=== PATIENT | female | born 1950 | race Caucasian/White ===

== ENCOUNTER 2018-08-22 12:22 | Outpatient (CLI) | payer MEDICARE ==
--- NOTE | 2018-08-22 14:10 | ULT ---
VENOUS DUPLEX SONOGRAM BILATERAL LOWER EXTREMITIES: HISTORY: Bilateral leg pain and edema. FINDINGS: Each common femoral vein and greater saphenous junction are evaluated along with each femoral, deep f emoral, popliteal, and posterior tibial vein. There is good color and spectral Doppler flow, timothy zoraida, and augmentation. IMPRESSION: No sonographic evidence of deep vein thrombosis within either lower extremity. POS: SAMANTHA
== END 2018-08-22 12:23 | disposition home or self-care (01) ==
LOC: BICULT 12:22
PROVIDERS: ATTEND Internal Medicine
DX: M79.604 Pain in right leg (principal); M79.605 Pain in left leg
CPT/HCPCS: 93970

== ENCOUNTER 2019-03-20 11:43 | Outpatient (CLI) | payer MEDICARE ==
[~2019-03-20 11:43] MED LIST: Iopamidol 370 76% 100 ML VIAL ONE
--- NOTE | 2019-03-20 13:11 | CT ---
CT ABDOMEN AND PELVIS WITH ORAL AND IV CONTRAST: HISTORY: Left upper quadrant pain COMPARISON: None FINDINGS: The lung bases are clear. The patient is post cholecystectomy. The spleen, pancreas, adrenal glands a nd kidneys appear normal. No free air, free fluid or lymphadenopathy seen in the abdomen or pelvis. There is a 7 mm low-density lesion in the posterior segment of the right lobe of the liver, too small to characterize. A small hiatal hernia is present. No free air, free fluid or lymphadenopathy seen in the abdomen or pelvis. The small bowel loops are n ot abnormally dilated. The appendix is normal. There is colonic diverticulosis without evidence of diverticulitis. No evidence of aneurysmal dilatation of the abdominal aorta is seen. There are degene rative changes in the spine. IMPRESSION: 1. Small hiatal hernia. 2. Indeterminate 7 mm liver lesion. 3. Colonic diverticulosis without diverticulitis.
== END 2019-03-20 11:44 | disposition home or self-care (01) ==
LOC: CT 11:43
PROVIDERS: ATTEND Internal Medicine Gastroenterology
DX: R10.12 Left upper quadrant pain (principal); K76.9 Liver disease, unspecified; K44.9 Diaphragmatic hernia without obstruction or gangrene; K57.30 Diverticulosis of large intestine without perforation or abscess without bleeding
CPT/HCPCS: 74177; 82565; Q9967

== ENCOUNTER 2019-06-25 08:18 | Outpatient (CLI) | payer MEDICARE ==
--- NOTE | 2019-06-25 11:19 | ULT ---
HEPATIC SONOGRAM WITH DUPLEX EVALUATION: Date: 06/25/19 HISTORY: Liver lesion. Abnormal CT. COMPARISON: CT abdomen dated 03/20/19. FINDINGS: Gallbladder is surgically absent. Common duct is 0.5 cm. Liver has a slightly heterogeneous echotextu re. The small hypodense lesion at the posterior dome of the right liver lobe on prior CT is not visib le on today's sonogram. No solid or cystic masses. No free fluid. Spleen measures up to 10.3 cm, without focal abnormality. Good color and spectral Doppler flow within the hepatic and splenic arteries. Portal venous flow is t owards the liver. Hepatic venous flow is towards the IVC. IMPRESSION: 1. No findings of portal venous hypertension. 2. Status post cholecystectomy. 3. Small lesion within the posterior dome right liver lobe on recent CT not visualized on today's so nogram. Based on that CT appearance, follow-up may not be necessary. If follow-up is performed, adams e consider CT liver with and without IV contrast employing a hemangioma protocol in 6-9 months to marina montalvo for stability. POS: FABIOLA
== END 2019-06-25 08:19 | disposition home or self-care (01) ==
LOC: BICULT 08:18
PROVIDERS: ATTEND Internal Medicine Gastroenterology
DX: R93.5 Abnormal findings on diagnostic imaging of other abdominal regions, including retroperitoneum (principal); K76.89 Other specified diseases of liver; Z90.49 Acquired absence of other specified parts of digestive tract
CPT/HCPCS: 76705

== ENCOUNTER 2019-11-05 15:21 | Outpatient (CLI) | payer MEDICARE ==
--- NOTE | 2019-11-18 13:51 | MMO ---
Bilateral MAMMO Bilat Screen DDI+BEBO. CLINICAL HISTORY: Patient is 69 years old and is seen for screening. The patient has a history of bilateral mastopexy at age 43. VIEWS: The views performed were: bilateral craniocaudal with tomosynthesis and bilateral mediolateral oblique with tomosynthesis. FILMS COMPARED: The present examination has been compared to a prior imaging study performed at [facility] on 11/13/2016. This study has been interpreted with the assistance of computer-aided detection. MAMMOGRAM FINDINGS: There are scattered fibroglandular densities. There is an asymmetry seen in the CC view only seen in the anterior central region of the left breast. In the right breast, there are no suspicious masses, calcifications or areas of architectural distortion. IMPRESSION: ASYMMETRY IN THE LEFT BREAST REQUIRES ADDITIONAL EVALUATION. RECOMMEND DIAGNOSTIC MAMMOGRAM. ULTRASOUND MAY ALSO PROVE USEFUL AT RECALL. THE RESULTS OF THIS EXAM WERE SENT TO THE PATIENT. ACR BI-RADS Category 0 - Incomplete: Need additional imaging evaluation. [facility] will notify the patient of the need for additional imaging services. MAMMOGRAPHY NOTE: 1. A negative mammogram report should not delay a biopsy if a dominant of clinically suspicious mass is present. 2. Approximately 10% to 15% of breast cancers are not detected by mammography. 3. Adenosis and dense breasts may obscure an underlying neoplasm. Reported by: HE DEMPSEY MD Electonically Signed: [id number]
== END 2019-11-05 15:22 | disposition home or self-care (01) ==
LOC: BICMAMMO 15:21
PROVIDERS: ATTEND Internal Medicine
DX: Z12.31 Encounter for screening mammogram for malignant neoplasm of breast (principal); N64.89 Other specified disorders of breast
CPT/HCPCS: 77063; 77067

== ENCOUNTER 2019-11-25 09:14 | Outpatient (CLI) | payer MEDICARE ==
--- NOTE | 2019-11-25 09:55 | MMO ---
Left Breast MAMMO Unilat Diag DDI LT+BEBO. CLINICAL HISTORY: Patient is 69 years old and is seen for additional evaluation requested at current screening. The patient has no family history of breast cancer. The patient has no personal history of cancer. The patient has a history of bilateral mastopexy at age 43. VIEWS: The views performed were: left craniocaudal spot compression with tomosynthesis; left mediolateral with tomosynthesis; and left mediolateral spot compression with tomosynthesis. FILMS COMPARED: The present examination has been compared to prior imaging studies performed at [facility] on 11/05/2019, and at [facility] on 11/13/2016. This study has been interpreted with the assistance of computer-aided detection. MAMMOGRAM FINDINGS: There are scattered fibroglandular densities. There is a stable round mass measuring 5 millimeters with circumscribed margins seen in the anterior region of the left breast at 12 o'clock. There are no suspicious masses, suspicious calcifications, or new areas of architectural distortion. IMPRESSION: THERE IS NO MAMMOGRAPHIC EVIDENCE OF MALIGNANCY. A ROUTINE FOLLOW-UP MAMMOGRAM IN 1 YEAR IS RECOMMENDED. THE RESULTS OF THIS EXAM WERE SENT TO THE PATIENT. ACR BI-RADS Category 2 - Benign finding MAMMOGRAPHY NOTE: 1. A negative mammogram report should not delay a biopsy if a dominant of clinically suspicious mass is present. 2. Approximately 10% to 15% of breast cancers are not detected by mammography. 3. Adenosis and dense breasts may obscure an underlying neoplasm. Reported by: UMA JOSEPH MD Electonically Signed: [id number]
== END 2019-11-25 09:15 | disposition home or self-care (01) ==
LOC: BICMAMMO 09:14
PROVIDERS: ATTEND Internal Medicine
DX: R92.8 Other abnormal and inconclusive findings on diagnostic imaging of breast (principal)
CPT/HCPCS: 77065; G0279

== ENCOUNTER 2019-12-24 12:23 | Inpatient (IN) | payer MEDICARE ==
[2019-12-24 13:18] LABS: #Basophils 0.1 thou/uL (0.0-0.2); #Eosinphils 0.1 thou/uL (0.0-0.7); #Lymphocytes 2.4 thou/uL (1.20-3.40); #Monocytes 0.5 thou/uL (0.11-0.59); #Neutrophils 3.4 thou/uL (1.40-6.50); %Basophils 0.8 % (0.0-1.0); %Eosinophils 2.3 % (0.0-10.0); %Lymphocytes 37.1 % (21.0-51.0); %Monocytes 7.5 % (0.0-10.0); %Neutrophils 52.3 % (42.0-75.0); Hemoglobin 13.9 g/dL (12.0-16.0); Mean Corpuscular HGB CONC 33.6 g/dL (32.0-36.0); Mean Corpuscular Hemoglobin 29.1 pg (27.0-31.0); Mean Corpuscular Volume 86.5 fL (78.0-98.0); Mean Platelet Volume 7.3 fL (7.4-10.4); Platelet Count 287 thou/uL (130-400); RBC Distribution Width 14.1 % (11.5-14.5); Red Blood Cell (RBC) Count 4.79 mill/uL (4.20-5.40); White Blood Cell (WBC) Count 6.4 thou/uL (4.8-10.8)
[2019-12-24] MEDS ORDERED: Nitroglycerin 2% Ointment 1 INCH/1 GM Packet ONE (13:26)
[2019-12-24 13:44] LABS: ALT (SGPT) 12 U/L (8-55); AST (SGOT) 14 U/L (5-34); Albumin 4.3 g/dL (3.4-4.8); Alkaline Phosphatase 124 U/L (40-110); Anion Gap 11 mmol/L (10-20); BUN (Urea Nitrogen) 11 mg/dL (9.8-20.1); Bilirubin, Total 0.6 mg/dL (0.2-1.2); Calc. Creatinine Clearance 0 mL/min (70-130); Calcium 9.3 mg/dL (7.8-10.44); Carbon Dioxide 27 mmol/L (23-31); Chloride 107 mmol/L (98-107); Estimated GFR-MDRD 71; Globulin 2.6 g/dL (2.4-3.5); Glucose 94 mg/dL (80-115); Lipase 14 U/L (8-78); Potassium 4.1 mmol/L (3.5-5.1); Protein, Total 6.9 g/dL (6.0-8.3); Sodium 141 mmol/L (136-145)
--- NOTE | 2019-12-24 14:01 | RAD ---
PORTABLE CHEST: Date: 12/24/2019 PROVIDED CLINICAL HISTORY: Chest pain. FINDINGS: No comparisons. Cardiac and mediastinal silhouette is within normal limits. No focal consolidation, pleural fluid, or pneumothorax apparent. IMPRESSION: No evidence for an acute cardiopulmonary process. POS: OFF
[2019-12-24 14:09] LABS: CKMB 1.7 ng/mL (0-6.6)
[2019-12-24] MEDS ORDERED: Bacitracin 1 PK ONE (15:45)
[2019-12-24] MEDS ORDERED: Nitroglycerin 0.4 MG TAB (25 Tab Bottle) SL PRN (18:09)
[2019-12-24] MEDS ORDERED: Enoxaparin Sodium 80 MG/0.8 ML SYRINGE SC SCH (18:15)
[2019-12-24] MEDS ORDERED: Enoxaparin Sodium 30 MG/0.3 ML SYRINGE ONE (18:40)
[2019-12-24] MEDS ORDERED: Enoxaparin Sodium 80 MG/0.8 ML SYRINGE ONE (18:40)
[2019-12-24] MEDS ORDERED: Aspirin Chewable 81 MG TAB PO SCH (20:45)
[2019-12-24] MEDS ORDERED: Atorvastatin Calcium 20 MG TAB PO SCH (21:00)
[2019-12-24] MEDS ORDERED: Acetaminophen 325 MG TAB PO PRN (21:13)
[2019-12-24] MEDS ORDERED: Ondansetron ODT 4 MG TAB SL PRN (21:13)
[2019-12-24] MEDS ORDERED: Ondansetron PF 4 MG/2 ML Vial IVP PRN (21:13)
[2019-12-24 22:03] LABS: Troponin I 8.384 ng/mL (< 0.028)
--- NOTE | 2019-12-24 22:29 | ULT ---
EXAM: Left lower extremity venous Doppler US HISTORY: left lower extremity edema and pain FINDINGS: Grayscale, color-flow, Doppler evaluation, spectral analysis of the left lower extremity venous struc tures is performed with 2-D imaging. The left common femoral, superficial femoral, popliteal, posterior tibial, proximal profunda femoral veins are imaged. The greater saphenous vein has been str ipped from the left groin to the ankle several years ago per history. There is normal luminal compressibility, flow, and augmentation the visualized deep venous structures of the left lower extremity. IMPRESSION: No evidence of a deep vein thrombosis in the left lower extremity.
[2019-12-24 23:41] LABS: Lactic Acid 0.6 mmol/L (0.5-2.2)
[2019-12-24 23:45] VITALS: BMI 35.9
[2019-12-25 05:01] LABS: Cardiac Risk 3.9 (Less than 4.5)
--- NOTE | 2019-12-25 06:19 | HP ---
This is DIONNA Verde dictating a report for Radha Jon MD. TIME OF ASSESSMENT: 1700. CHIEF COMPLAINT: Chest pain. HISTORY OF PRESENT ILLNESS: Ms. Flor Stearns is a 69-year-old woman, who presents with complaints of chest pain that she states started yesterday evening. The patient does not recall what time, but states it was at rest and she thought it was due to stress, which she experiences every so often. This morning, however, after walking her dog the patient reports having some severe chest pain rating it 8/10 in severity on the left side of her chest radiating to her left arm and to her neck as well as through to her back. The patient reports the pain remained constant until she arrived to the emergency department and was given Nitro-Bid. She had an EKG done that showed a normal sinus rhythm with no ST changes or T-wave abnormalities. LABORATORY DATA: She had laboratory studies done showing troponin of 0.043, CK-MB 1.7. Full blood count was normal. Sodium 141, potassium 4.1, BUN 11, creatinine 0.80, GFR 71. LFTs unremarkable. Alkaline phosphatase was 124. Chest x-ray showed no evidence for acute cardiopulmonary process. PAST MEDICAL HISTORY: Depression. PAST SURGICAL HISTORY: 1. Bilateral knee replacement. 2. Cholecystectomy. 3. Breast augmentation. SOCIAL HISTORY: The patient denies any tobacco use, alcohol consumption, or illicit drug use. She is fully independent at baseline. PHYSICAL EXAMINATION: GENERAL: The patient appears well developed, well nourished, is in no acute distress. VITAL SIGNS: Temperature 98, pulse 65, blood pressure 141/84, respirations 18, O2 saturation 99% on room air. HEENT: Normocephalic and atraumatic. Pupils are equal, round, reactive to light. No scleral icterus. Oropharynx is clear. NECK: Supple. No lymphadenopathy. LUNGS: Clear to auscultation bilaterally without wheezes, rales, or rhonchi. CARDIAC: Regular rate and rhythm. No chest wall tenderness on palpation. ABDOMEN: Soft, nontender, nondistended. Normoactive bowel sounds present. No guarding or rigidity. No renal angle tenderness. EXTREMITIES: Notable for slight erythema and warmth to the left lower leg from the mid bryant down to above her ankle with trace edema. The patient states it feels tight. Peripheral pulses equal and strong bilaterally. NEUROLOGIC: Alert and oriented x3. No neuro deficits on exam. SKIN: Warm and dry. INVESTIGATIONS: As mentioned above in HPI. IMPRESSION AND PLAN: Ms. Stearns is a 69-year-old woman, presenting with left-sided chest pain radiating to the back, neck and left shoulder, who is being admitted for the following. 1. Acute coronary syndrome rule out. We will continue to trend troponins. The patient is pain-free at present. We will obtain lipid panel with morning labs. We will check TSH. We will continue daily aspirin. The patient was given 324 mg of aspirin by EMS en route to the hospital. The patient will be made n.p.o. after midnight. If troponins remain indeterminate/negative, we will plan for stress test in the morning as well as echo. 2. Left lower extremity erythema. Concern for possible early cellulitis, but no wound evident. We will obtain a venous Doppler to rule out deep venous thrombosis. We will obtain a D-dimer. If positive we will proceed with a CT angiogram of her chest. To assess for possible infection we will add on a procalcitonin and lactic acid. 3. Gastrointestinal prophylaxis with famotidine. 4. Deep venous thrombosis prophylaxis. Investigations as above. 5. Code status full. Surrogate decision maker is her son, Ryan Stearns. PRIMARY CARE PHYSICIAN: Dr. Yamel Javier. Case discussed with Dr. Jon who agrees with plan of care as described above. ADDENDUM: Second troponin has come back elevated at 3.960. EKG repeated with no dynamic changes as per ED physician. We will start Lovenox 1 mg/kg b.i.d. and Cardiology has been consulted. The patient remains pain free. Job ID: [id number]
[2019-12-25] MEDS ORDERED: Sodium Chloride 0.9% 1,000 ML IV SCH (08:45)
[2019-12-25] MEDS ORDERED: Communication Order-Pharmacy FS SCH (08:45)
[2019-12-25] MEDS ORDERED: Enoxaparin Sodium 120 MG/0.8 ML SYRINGE SC SCH (09:00)
--- NOTE | 2019-12-25 09:06 | CON ---
DATE OF CONSULTATION: 12/25/2019 REASON FOR CONSULTATION: Non-ST elevation myocardial infarction. HISTORY OF PRESENT ILLNESS: Ms. Stearns is a delightful 69-year-old woman. The patient presented to the hospital yesterday with chest pain radiating to her neck and upper back. It was intense. She thought she may be having a heart attack or she is also concerned that she could be having a stroke. Ultimately, she came here for evaluation. Her pain was relieved here. She did have positive cardiac enzymes. FAMILY HISTORY: Both parents had coronary artery disease. Her mother had a stent. Father had of a large myocardial infarction. SOCIAL HISTORY: She is a nonsmoker. No alcohol abuse. No drug abuse. PAST MEDICAL HISTORY: She has hypothyroidism on supplementation. REVIEW OF SYSTEMS: CONSTITUTIONAL: No significant weight gain or loss. VISION: No changes. HEARING: No changes. PULMONARY: No cough or wheezing. GASTROINTESTINAL: No nausea, vomiting, or diarrhea. SKIN: No rashes. NEUROLOGIC: No unilateral weakness or numbness. PSYCHIATRIC: No unusual depression or anxiety. PHYSICAL EXAMINATION: GENERAL: This is a pleasant 69-year-old woman, in no distress. VITAL SIGNS: Blood pressure 129/67 and pulse 68 and regular. HEENT: Eyes, sclerae nonicteric. Mouth, mucous membranes moist. NECK: Supple. No lymphadenopathy. LUNGS: Clear. CARDIAC: Normal S1 and normal S2. There is no murmur, rub, or gallop. ABDOMEN: Obese and nontender. No hepatosplenomegaly. EXTREMITIES: Warm and dry. No clubbing or cyanosis or edema. Good peripheral pulses. LABORATORY DATA: EKG is normal. Peak troponin 8.384. The patient's cholesterol LDL 126 and triglyceride 162. ASSESSMENT: 1. Status post non-ST elevation infarction. 2. Family history of coronary artery disease. 3. Mixed hyperlipidemia. 4. Obesity, BMI 35.9. PLAN: Plan is to proceed to cardiac catheterization. Discussed risk of stroke, heart attack, iodine allergy, loss of blood supply to leg or kidney, stent thrombosis, and stent restenosis. The patient understands and wished to proceed. Job ID: [id number]
[2019-12-25] MEDS ORDERED: Midazolam HCl 2 mg/2 ml Vial ONE (09:46)
[2019-12-25] MEDS ORDERED: Lidocaine 1% (PF) 30 ML VIAL ONE (09:46)
[2019-12-25] MEDS ORDERED: Heparin (Artline) 1,000 ML ONE (09:46)
[2019-12-25] MEDS ORDERED: Fentanyl 100 MCG/2 ML VIAL ONE (09:47)
[2019-12-25] MEDS ORDERED: Nitroglycerin 100MG/250ML BOT 0 ML ONE (09:56)
[2019-12-25] MEDS ORDERED: Sodium Chloride 0.9% 200 ML IV PRN (10:35)
[2019-12-25] MEDS ORDERED: Nitroglycerin 0.4 MG TAB (25 Tab Bottle) SL PRN (10:35)
[2019-12-25] MEDS ORDERED: Acetaminophen/Codeine 30-300mg Tablet PO PRN ×2 (10:35)
[2019-12-25] MEDS ORDERED: Iopamidol 370 76% 100 ML VIAL ONE (10:51)
[2019-12-25] MEDS ORDERED: Clopidogrel Bisulfate 300 MG TAB PO SCH (14:00)
[2019-12-25] MEDS: Acetaminophen 325 MG TAB PO PRN (14:20)
[2019-12-25] MEDS ORDERED: Atorvastatin Calcium 40 MG TAB PO SCH (21:00)
[2019-12-26] MEDS: Acetaminophen 325 MG TAB PO PRN (01:17)
[2019-12-26] MEDS ORDERED: Clopidogrel Bisulfate 75 MG TAB PO SCH (09:00)
--- NOTE | 2019-12-26 09:39 | PDOC.CPN ---
- Subjective Date: 12/26/19 Time: 09:00 Interval history: Ms. Stearns is awake, eating breakfast, very anxious to go home. Denies any angina or shortness of breath. Ambulating to bathroom without difficult. Denies pain, bleeding to right groin site, feels "tender". No overnight events on telemetry. - Review of Systems General: denies: fever/chills, weight/appetite/sleep changes, night sweats, fatigue Respiratory: denies: cough, congestion, shortness of breath, exercise intolerance Cardiovascular: denies: chest pain, palpitation, edema, paroxysmal nocturnal dyspnea, orthopnea Gastrointestinal: denies: nausea, vomiting, diarrhea, constipation, abd pain, GI bleeding Musculoskeletal: denies: pain, tenderness, stiffness, swelling, arthritis/ arthralgias - Objective Allergies/Adverse Reactions: Allergies Allergy/AdvReac Type Severity Reaction Status Date / Time No Known Drug Allergies Allergy Verified 12/24/19 22:14 Visit Medications: Current Medications Acetaminophen (Tylenol) 650 mg PO Q6H PRN PRN Reason: Headache/Fever or Pain Last Admin: 12/26/19 01:17 Dose: 650 mg Acetaminophen/Codeine Phosphate (Tylenol #3) 1 tab PO Q4H PRN PRN Reason: Mild Pain (1-3) Acetaminophen/Codeine Phosphate (Tylenol #3) 2 tab PO Q4H PRN PRN Reason: Moderate Pain (4-6) Atorvastatin Calcium (Lipitor) 40 mg PO HS [facility] Last Admin: 12/25/19 21:03 Dose: 40 mg Clopidogrel Bisulfate (Plavix) 75 mg PO DAILY [facility] Fluoxetine HCl (Prozac) 10 mg PO DAILY [facility] Nitroglycerin (Nitrostat) 0.4 mg SL Q5MIN PRN PRN Reason: Chest Pain Nitroglycerin (Nitrostat) 0.4 mg SL Q5MIN PRN PRN Reason: Chest Pain Sodium Chloride (Flush - Normal Saline) 10 ml IVF Q12HR [facility] Last Admin: 12/25/19 21:03 Dose: 10 ml Sodium Chloride (Flush - Normal Saline) 10 ml IVF PRN PRN PRN Reason: Saline Flush Thyroid ([place] Thyroid) 60 mg PO DAILY [facility] Vital Signs & Weight: Vital Signs Temp Pulse Resp BP Pulse Ox 12/26/19 04:00 98.2 F 76 18 132/64 95 Weight 236 lb 6.4 oz - Quality Measures Condition: Coronary Artery Disease CV meds: Beta Minoo: No, AIDAN/ARB: No, Statin: Yes, Plavix/Effient/Brilinta: Yes - Physical Exam General: alert & oriented x3, appears well, no apparent distress HEENT: mucus membranes moist Neck: supple neck, no JVD/HJR, no bruit Cardiac: regular rate and rhythm, no murmur, S1/S2 Lungs: clear to auscultation, normal breath sounds, no wheeze, rales, rhonchi Neuro: grossly intact Abdomen: unremarkable Extremities: no edema Skin: clear (Right groin site s/ hematoma, oozing. Scant ecchymosis.) - Labs Result Diagrams: 12/24/19 13:10 12/24/19 13:10 Troponin/CKMB CK-MB (CK-2) 28.0 ng/mL (0-6.6) H* 12/24/19 19:45 Troponin I 8.384 ng/mL (< 0.028) H* 12/24/19 21:27 - Telemetry Sinus rhythms and dysrhythmias: sinus rhythm - Assessment/Plan Assessment/Plan: 1. CAD-s/p NSTEMI, LHC 12/25 showed left main, LAD, Cx all normal. RCA normal, small distal branch off RCA 100% occluded (recent occlusion). Trop max 8.384. Recommend medical therapy. No recurrent angina. 2. Mixed Hyperlipidemia-TGS 162, LDL 127, target LDL <70. She is very hesitant to start statins, concerned re: SE. Discussed target LDL control, dietary modification for elevated TGS 3. Hypothyroidism 4. Strong family history of CAD. 5. Obesity BP above target, recommend low-dose lisinopril, low-dose metoprolol. Continue statin, DAPT. Okay to discharge home, f/u 4 weeks.
[2019-12-26] MEDS ORDERED: FLUoxetine HCl 10 MG CAP PO SCH (10:15)
[2019-12-26] MEDS ORDERED: Thyroid 60 MG TAB PO SCH (10:15)
[2019-12-26] MEDS ORDERED: Aspirin 81 mg Enteric Coated Tablet PO SCH (10:45)
[2019-12-26 12:05] VITALS: BP 139/81; TEMP 98.7
--- NOTE | 2019-12-26 18:46 | DIS ---
DATE OF ADMISSION: 12/24/2019 DATE OF DISCHARGE: 12/26/2019 DISCHARGE DIAGNOSES: 1. Chest pain, [id number] myocardial infarction. 2. Mixed hyperlipidemia. 3. Hypothyroidism. 4. Obesity. HOSPITAL COURSE: The patient is a very pleasant 69-year-old female who initially presented to the hospital with chest pain, was found to have elevated troponins. She had a cardiac cath on 12/25, that indicated normal left main LAD and circumflex and RCA. However, a small distant branch of RCA was 100% occluded. No intervention was done. The patient was put on medical therapy. The patient had no angina overnight and at this time, she will be discharged home. She did have triglycerides at 162, LDL of 127. We did discuss with her about diet, exercise, and she understands. We will start her on statin and also put her on aspirin and Plavix. The patient had concerns about her Eolia which she takes for hypothyroidism. I recommended to follow up with her primary care doctor and also recommended an coal cutter if needed. Her TSH on discharge was 7.4, and I do not have a prior one for comparison. PHYSICAL EXAMINATION: VITAL SIGNS: Temperature 98.7, pulse 82, respirations 15, 92% on room air, blood pressure 139/81. GENERAL: She is awake, alert, and oriented x3. Does not appear in distress. CV: S1 and S2 present. No murmurs, rubs, or gallops. EXTREMITIES: Her right groin site appears intact. MEDICATIONS: She is going to be on: 1. [place] Thyroid 60 mg daily. 2. Prozac 10 mg daily. 3. Toprol-XL 12.5 daily. 4. Lisinopril 2.5 daily. 5. Clopidogrel 75 daily. 6. Atorvastatin 40 mg daily. 7. Aspirin 81 mg daily. Job ID: [id number]
[2019-12-27] MEDS ORDERED: Lisinopril 2.5 MG TAB PO SCH (09:00)
[2019-12-27] MEDS ORDERED: Thyroid 60 MG TAB PO SCH (09:00)
[2019-12-27] MEDS ORDERED: Aspirin 81 mg Enteric Coated Tablet PO SCH (09:00)
[2019-12-27] MEDS ORDERED: FLUoxetine HCl 10 MG CAP PO SCH (09:00)
== END 2019-12-26 15:27 | disposition home or self-care (01) | DRG 282 ==
LOC: ERS 12:23 → ERHOLD 16:25 → 2NO 20:49
PROVIDERS: ADMIT Internal Medicine; ATTEND Internal Medicine
PROC: 4A023N7 Measurement of Cardiac Sampling and Pressure, Left Heart, Percutaneous Approach (ICD-10-PCS; principal; 2019-12-25)
PROC: B2111ZZ Fluoroscopy of Multiple Coronary Arteries using Low Osmolar Contrast (ICD-10-PCS; 2019-12-25)
PROC: B2141ZZ Fluoroscopy of Right Heart using Low Osmolar Contrast (ICD-10-PCS; 2019-12-25)
DX: I21.4 Non-ST elevation (NSTEMI) myocardial infarction (principal); E78.2 Mixed hyperlipidemia; E03.9 Hypothyroidism, unspecified; E66.9 Obesity, unspecified; Z96.653 Presence of artificial knee joint, bilateral; F32.9 Major depressive disorder, single episode, unspecified; L53.8 Other specified erythematous conditions; I25.10 Atherosclerotic heart disease of native coronary artery without angina pectoris; Z68.35 Body mass index [BMI] 35.0-35.9, adult; Z90.49 Acquired absence of other specified parts of digestive tract; Z79.899 Other long term (current) drug therapy; Z79.890 Hormone replacement therapy
CPT/HCPCS: 36415; 71045; 76942; 80053; 80061; 82553; 83605; 83690; 83880; 84145; 84439; 84443; 84484; 85025; 85379; 93005; 93458; 93798; 94760; 96372; 99152; C1769; J1644; J1650; J2001; J2250; J3010; Q9967

== ENCOUNTER 2020-01-01 09:08 | Outpatient (CLI) | payer MEDICARE ==
--- NOTE | 2020-01-01 09:34 | RAD ---
3 views paranasal sinuses: 01/01/2020 COMPARISON: None HISTORY: Sinusitis, pressure and pain behind the right eye FINDINGS: The frontal sinuses, maxillary sinuses, ethmoid air cells, sphenoid sinuses, and mastoid ai r cells appear grossly unremarkable. IMPRESSION: Unremarkable 3 view examination of the paranasal sinuses.
== END 2020-01-01 09:09 | disposition home or self-care (01) ==
LOC: BICRAD 09:08
PROVIDERS: ATTEND Internal Medicine
DX: J40 Bronchitis, not specified as acute or chronic (principal); J32.9 Chronic sinusitis, unspecified
CPT/HCPCS: 36415; 70220; 80053; 85025

== ENCOUNTER 2020-02-09 19:34 | Emergency (ER) | payer MEDICARE, OTHER ==
[2020-02-09] MEDS ORDERED: Aspirin 325 MG TAB ONE (20:06)
[2020-02-09 20:16] LABS: #Basophils 0.1 thou/uL (0.0-0.2); #Eosinphils 0.2 thou/uL (0.0-0.7); #Monocytes 0.5 thou/uL (0.11-0.59); #Neutrophils 4.2 thou/uL (1.40-6.50); %Basophils 0.8 % (0.0-1.0); %Lymphocytes 37.7 % (21.0-51.0); %Monocytes 6.6 % (0.0-10.0); %Neutrophils 52.8 % (42.0-75.0); Hemoglobin 13.3 g/dL (12.0-16.0); Mean Corpuscular HGB CONC 34.5 g/dL (32.0-36.0); Mean Corpuscular Hemoglobin 29.7 pg (27.0-31.0); Mean Corpuscular Volume 86.2 fL (78.0-98.0); Mean Platelet Volume 7.4 fL (7.4-10.4); Platelet Count 269 thou/uL (130-400); RBC Distribution Width 14.1 % (11.5-14.5); Red Blood Cell (RBC) Count 4.47 mill/uL (4.20-5.40); White Blood Cell (WBC) Count 7.9 thou/uL (4.8-10.8)
--- NOTE | 2020-02-09 20:31 | RAD ---
PORTABLE CHEST: 02/09/20 PROVIDED CLINICAL HISTORY: Chest pain. FINDINGS: Comparison 12/24/19. Cardiac and mediastinal silhouette is within normal limits. The lungs appear clear. No pleural fluid or pneumothorax apparent. IMPRESSION: No evidence for an acute cardiopulmonary process. POS: SIERRA
[2020-02-09 20:40] LABS: ALT (SGPT) 11 U/L (8-55); AST (SGOT) 14 U/L (5-34); Albumin 4.2 g/dL (3.4-4.8); Alkaline Phosphatase 115 U/L (40-110); Anion Gap 12 mmol/L (10-20); BUN (Urea Nitrogen) 19 mg/dL (9.8-20.1); Bilirubin, Total 0.5 mg/dL (0.2-1.2); Calc. Creatinine Clearance 0 mL/min (70-130); Calcium 9.2 mg/dL (7.8-10.44); Carbon Dioxide 24 mmol/L (23-31); Chloride 107 mmol/L (98-107); Estimated GFR-MDRD 61; Glucose 87 mg/dL (80-115); Potassium 3.9 mmol/L (3.5-5.1); Protein, Total 7.2 g/dL (6.0-8.3); Sodium 139 mmol/L (136-145)
--- NOTE | 2020-02-10 13:27 | EKG ---
Test Reason : Blood Pressure : / mmHG Vent. Rate : 066 BPM Atrial Rate : 066 BPM P-R Int : 198 ms QRS Dur : 084 ms QT Int : 412 ms P-R-T Axes : 024 -05 009 degrees QTc Int : 431 ms Normal sinus rhythm Q waves III Abnormal ECG Confirmed by DESTINEY TIDWELL, ISA Ham ([id number]), order editor JOCELYN PATEL ([id number]) on 02/10/2020 1:26:51 PM Referred By: Confirmed By:ISA CABELLO MD
== END 2020-02-09 20:58 | disposition home or self-care (01) ==
LOC: ERS 19:34
DX: R07.9 Chest pain, unspecified (principal); I25.2 Old myocardial infarction; F32.9 Major depressive disorder, single episode, unspecified; Z79.899 Other long term (current) drug therapy
CPT/HCPCS: 36415; 71045; 80053; 83880; 84484; 85025; 93005

== ENCOUNTER 2020-08-16 21:55 | Emergency (ER) | payer MEDICARE ==
[2020-08-16] MEDS ORDERED: Ketamine 50 MG/ML (10ML VIAL) ONE (23:00)
[2020-08-16] MEDS ORDERED: Fentanyl 100 MCG/2 ML VIAL ONE (23:16)
[2020-08-17] MEDS ORDERED: Ondansetron PF 4 MG/2 ML Vial ONE (00:43)
--- NOTE | 2020-08-17 07:05 | RAD ---
LEFT HUMERUS 2 VIEWS: Date: 08/16/2020 HISTORY: Tripped and fell. FINDINGS: There is an anterior shoulder dislocation present. No Hill-Sachs deformity visualized. IMPRESSION: Anterior shoulder dislocation. POS: FABIO
--- NOTE | 2020-08-17 07:09 | RAD ---
LEFT SHOULDER 2 VIEWS: Date: 08/16/2020 HISTORY: Fall with shoulder pain. FINDINGS: There is an anterior shoulder dislocation present. On the more internally rotated view, there appears to be an associated Hill-Sachs deformity to the humeral head. IMPRESSION: Anterior shoulder dislocation. POS: FABIO
--- NOTE | 2020-08-17 07:12 | RAD ---
LEFT SHOULDER 2 VIEW: Date: 08/16/2020 HISTORY: Post reduction. FINDINGS: The anterior shoulder dislocation is still present. IMPRESSION: Persistent anterior shoulder dislocation. POS: FABIO
--- NOTE | 2020-08-17 07:38 | RAD ---
2 views left shoulder: 08/17/2020 COMPARISON: 08/16/2020 HISTORY: Evaluate left shoulder following reduction FINDINGS: The previously noted dislocation of the left glenohumeral joint has been reduced. No wideni ng of the acromioclavicular or coracoclavicular interspace. No displaced fracture. IMPRESSION: Interval reduction of the previously noted left shoulder dislocation.
== END 2020-08-17 01:22 | disposition home or self-care (01) ==
LOC: ERS 21:55
DX: S43.005A Unspecified dislocation of left shoulder joint, initial encounter (principal); I25.2 Old myocardial infarction; F32.9 Major depressive disorder, single episode, unspecified; E66.9 Obesity, unspecified; W01.0XXA Fall on same level from slipping, tripping and stumbling without subsequent striking against object, initial encounter
CPT/HCPCS: 23650; 96374; 96375; 99156; 99157; J2405; J3010

== ENCOUNTER 2020-11-11 12:32 | Outpatient (CLI) | payer MEDICARE ==
--- NOTE | 2020-11-11 14:56 | CT ---
EXAM: CT left shoulder without contrast PROVIDED CLINICAL HISTORY: Preoperative planning COMPARISON: MRI right shoulder 10/05/2020 FINDINGS: Osseous Bankart fracture with displaced osteochondral fragments and glenohumeral joint effusion are r edemonstrated. Hill-Sachs impaction deformity is again seen. There is a healing/healed fracture involving the coracoid process. No additional fracture is evident. No significant acromioclavicular degenerative change. Rotator cuff muscular volume appears preserved. There is no evidence for axillary lymph node enlargement. The visualized left lung field appears clear. IMPRESSION: As above.
== END 2020-11-11 12:33 | disposition home or self-care (01) ==
LOC: BICCT 12:32
PROVIDERS: ATTEND Orthopaedic Surgery
DX: S43.005A Unspecified dislocation of left shoulder joint, initial encounter (principal); M21.822 Other specified acquired deformities of left upper arm

== ENCOUNTER 2021-04-04 17:59 | Outpatient (CLI) | payer MEDICARE ==
[2021-04-04 19:05] LABS: #Eosinphils 0.2 10x3/uL (0.0-0.5); #Monocytes 0.6 10x3/uL (0.0-1.1); #Neutrophils 4.6 10x3/uL (1.5-8.4); %Basophils 0.5 % (0.0-2.0); %Lymphocytes 29.2 % (18.0-47.0); %Monocytes 7.6 % (0.0-10.0); %Neutrophils 60.3 % (40.0-75.0); Hemoglobin 12.7 g/dL (12.0-15.5); Mean Corpuscular HGB CONC 32.3 g/dL (32.0-36.0); Mean Corpuscular Hemoglobin 27.9 pg (27.0-33.0); Mean Corpuscular Volume 86.4 fl (81.6-98.3); Platelet Count 325 10x3/uL (150-450); RBC Distribution Width 15.4 % (11.5-14.5); Red Blood Cell (RBC) Count 4.55 10x6/uL (3.90-5.03); White Blood Cell (WBC) Count 7.7 10x3/uL (3.5-10.5)
[2021-04-04 19:08] LABS: Anion Gap 13 mmol/L (10-20); BUN (Urea Nitrogen) 15 mg/dL (9.8-20.1); Calc. Creatinine Clearance 0 mL/min (70-130); Calcium 9.6 mg/dL (7.8-10.44); Carbon Dioxide 26 mmol/L (23-31); Chloride 104 mmol/L (98-107); Glucose 85 mg/dL (80-115); Potassium 4.1 mmol/L (3.5-5.1); Sodium 139 mmol/L (136-145)
[2021-04-04 19:15] LABS: INR-International Normal Ratio 0.9; PTT 26.3 sec (22.0-33.0); Prothrombin Time 10.5 sec (9.5-12.1)
[2021-04-05 00:07] LABS: SARS-CoV-2 NAA Rapid Test Not Detected (NotDetected)
== END 2021-04-04 18:00 | disposition home or self-care (01) ==
LOC: LABBT 17:59
PROVIDERS: ATTEND Orthopaedic Surgery
DX: Z01.818 Encounter for other preprocedural examination (principal); S42.202A Unspecified fracture of upper end of left humerus, initial encounter for closed fracture; S43.005A Unspecified dislocation of left shoulder joint, initial encounter; S42.142A Displaced fracture of glenoid cavity of scapula, left shoulder, initial encounter for closed fracture; S42.135A Nondisplaced fracture of coracoid process, left shoulder, initial encounter for closed fracture; Z20.822 Contact with and (suspected) exposure to COVID-19
CPT/HCPCS: 80048; 85025; 85610; 85730; U0002; U0005

== ENCOUNTER 2021-04-04 18:00 | Inpatient (IN) | payer MEDICARE ==
[2021-04-05 10:28] VITALS: BMI 34.4
[2021-04-06] MEDS ORDERED: Fentanyl 100 MCG/2 ML VIAL ONE ×2 (06:29→07:27)
[2021-04-06] MEDS ORDERED: Tranexamic Acid 1,000 MG/10 ML VIAL ONE (06:32)
[2021-04-06] MEDS ORDERED: Vancomycin 1.5 GRAM/300 ML BAG 1.5 GM in Premix Bag 1 BAG IVPB SCH ×2 (06:45→18:00)
[2021-04-06] MEDS ORDERED: Midazolam HCl 2 mg/2 ml Vial ONE (07:27)
[2021-04-06] MEDS ORDERED: Fentanyl 100 MCG/2 ML VIAL IV PRN (07:28)
[2021-04-06] MEDS ORDERED: HYDROcodone/Acetaminophen 10/325 mg Tablet PO PRN ×3 (07:30→12:01)
[2021-04-06] MEDS ORDERED: Ondansetron PF 4 MG/2 ML Vial IVP PRN ×2 (07:30→12:01)
[2021-04-06] MEDS ORDERED: Promethazine HCl 25 MG/ML VIAL IM PRN ×2 (07:30→10:14)
[2021-04-06] MEDS ORDERED: traMADol HCl 50 MG TAB PO PRN ×4 (07:30→12:01)
[2021-04-06] MEDS ORDERED: Zolpidem Tartrate 5 MG TAB PO PRN ×2 (07:30→12:01)
[2021-04-06] MEDS ORDERED: Ropivacaine 0.2% 550 ML 550 ML NERVE BLCK SCH (07:30)
[2021-04-06] MEDS ORDERED: ePHEDrine Sulfate 50 MG/10 ML VIAL ONE (07:31)
[2021-04-06] MEDS ORDERED: Ondansetron PF 4 MG/2 ML Vial ONE ×2 (07:31→10:20)
[2021-04-06] MEDS ORDERED: Glycopyrrolate 0.2 MG/ML 5 ML SYRINGE ONE (07:31)
[2021-04-06] MEDS ORDERED: Ropivacaine 0.5% HCl/PF (150 MG/30 ML VIAL) ONE (07:31)
[2021-04-06] MEDS ORDERED: Rocuronium Bromide 10 MG/ML (10ML VIAL) ONE (07:31)
[2021-04-06] MEDS ORDERED: Ropivacaine 2% HCl/PF (20 MG/10 ML VIAL) ONE (07:31)
[2021-04-06] MEDS ORDERED: PHENYLEPHRINE-NS 100 MCG/ML 10 ML SYRINGE ONE (07:31)
[2021-04-06] MEDS ORDERED: Dexamethasone 20 MG/5 ML VIAL ONE (07:31)
[2021-04-06] MEDS ORDERED: PROPOFOL 200 MG/20 ML VIAL ONE (07:31)
[2021-04-06] MEDS ORDERED: Lidocaine 1% PF 5 ML VIAL ONE (07:31)
[2021-04-06] MEDS ORDERED: Phenylephrine 10 MG/ML VIAL ONE (08:22)
[2021-04-06] MEDS ORDERED: Promethazine HCl 25 MG/ML VIAL SLOW IVP PRN (10:14)
[2021-04-06] MEDS ORDERED: Ondansetron HCl/PF 4 MG/2 ML Vial IVP PRN (10:14)
[2021-04-06] MEDS ORDERED: Promethazine HCl 25 MG/ML VIAL ONE (10:20)
[2021-04-06] MEDS ORDERED: Milk Of Magnesia 30 ML UDCUP PO PRN (12:01)
[2021-04-06] MEDS ORDERED: Methocarbamol 1 GM/10 ML VIAL SLOW IVP PRN (12:01)
[2021-04-06] MEDS ORDERED: Acetaminophen 325 MG TAB PO PRN (12:01)
[2021-04-06] MEDS ORDERED: Ondansetron ODT 4 MG TAB PO PRN (12:01)
[2021-04-06] MEDS ORDERED: Bisacodyl 10 MG SUPP PR PRN (12:01)
[2021-04-06] MEDS ORDERED: Ketorolac Tromethamine 30 MG/ML VIAL IVP PRN (12:01)
[2021-04-06] MEDS ORDERED: Methocarbamol 500 MG TAB PO PRN (12:01)
[2021-04-06] MEDS ORDERED: diphenhydrAMINE 50 MG CAP PO PRN (12:01)
[2021-04-06] MEDS ORDERED: Vancomycin HCl 1.5 GM in Sodium Chloride 0.9% 250 ML 300 ML IVPB SCH (12:01)
[2021-04-06] MEDS ORDERED: Nitroglycerin 0.4 MG TAB (25 Tab Bottle) SL PRN (12:40)
[2021-04-06] MEDS: CEFAZOLIN 2 GM in Premix Bag 1 BAG IVPB SCH ×2 (13:15→15:58)
[2021-04-06] MEDS: Ketorolac Tromethamine 30 MG/ML VIAL IVP SCH ×3 (13:25→23:35)
[2021-04-06] MEDS: Sodium Chloride 0.9% 1,000 ML IV SCH (14:43)
[2021-04-06] MEDS: HYDROcodone/Acetaminophen 10/325 mg Tablet PO PRN (16:04)
[2021-04-06] MEDS: Ascorbic Acid 500 mg Chewable Tablet PO SCH (22:45)
[2021-04-06] MEDS: Magnesium Oxide 400 MG TAB PO SCH (22:45)
[2021-04-06] MEDS: Famotidine 20 MG TAB PO SCH (22:45)
[2021-04-07] MEDS: HYDROcodone/Acetaminophen 10/325 mg Tablet PO PRN ×2 (05:07→09:28)
[2021-04-07] MEDS: Ketorolac Tromethamine 30 MG/ML VIAL IVP SCH ×2 (05:47→12:34)
[2021-04-07 05:52] LABS: Hemoglobin 12.3 g/dL (12.0-16.0); Mean Corpuscular HGB CONC 33.5 g/dL (32.0-36.0); Mean Corpuscular Hemoglobin 29.8 pg (27.0-31.0); Mean Corpuscular Volume 89.1 fL (78.0-98.0); Mean Platelet Volume 7.7 fL (7.4-10.4); Platelet Count 290 thou/uL (130-400); RBC Distribution Width 13.5 % (11.5-14.5); Red Blood Cell (RBC) Count 4.11 mill/uL (4.20-5.40); White Blood Cell (WBC) Count 12.4 thou/uL (4.8-10.8)
[2021-04-07] MEDS: Sodium Chloride 0.9% 1,000 ML IV SCH (05:52)
[2021-04-07] MEDS ORDERED: Zinc Sulfate 220 MG CAP PO SCH (09:00)
[2021-04-07] MEDS ORDERED: FLUoxetine HCl 10 MG CAP PO SCH (09:00)
[2021-04-07] MEDS ORDERED: Acetylcysteine 20% 200 MG/ML 30 ML VIAL PO SCH (09:00)
[2021-04-07] MEDS ORDERED: prednisoLONE 1% Ophth Susp 5 ml Bottle EA EYE SCH (09:00)
[2021-04-07] MEDS ORDERED: QUERCETIN 500 MG PO SCH (09:00)
[2021-04-07] MEDS ORDERED: Cholecalciferol 1,000 UNITS (25 MCG) TAB PO SCH (09:00)
[2021-04-07] MEDS ORDERED: Aspirin Chewable 81 MG TAB PO SCH (09:00)
[2021-04-07] MEDS ORDERED: Thyroid 60 MG TAB PO SCH (09:00)
[2021-04-07] MEDS ORDERED: Multivit, Therapeutic 1 TAB PO SCH (09:00)
[2021-04-07] MEDS: Famotidine 20 MG TAB PO SCH (09:27)
[2021-04-07] MEDS: Magnesium Oxide 400 MG TAB PO SCH (09:28)
[2021-04-07] MEDS: Ascorbic Acid 500 mg Chewable Tablet PO SCH (09:28)
[2021-04-07 11:58] VITALS: BP 96/60; TEMP 98.4
== END 2021-04-07 15:16 | disposition home or self-care (01) | DRG 483 ==
LOC: SURG A 04-06 06:11 → SURG B 04-06 12:28
PROVIDERS: ADMIT Orthopaedic Surgery; ATTEND Orthopaedic Surgery
PROC: 0RRK00Z Replacement of Left Shoulder Joint with Reverse Ball and Socket Synthetic Substitute, Open Approach (ICD-10-PCS; principal; 2021-04-06)
PROC: 0LS40ZZ Reposition Left Upper Arm Tendon, Open Approach (ICD-10-PCS; 2021-04-06)
DX: S42.142A Displaced fracture of glenoid cavity of scapula, left shoulder, initial encounter for closed fracture (principal); S42.202A Unspecified fracture of upper end of left humerus, initial encounter for closed fracture; W19.XXXA Unspecified fall, initial encounter; S43.012A Anterior subluxation of left humerus, initial encounter; S46.012A Strain of muscle(s) and tendon(s) of the rotator cuff of left shoulder, initial encounter; I10 Essential (primary) hypertension; R06.9 Unspecified abnormalities of breathing; I25.2 Old myocardial infarction; Z98.890 Other specified postprocedural states; Z91.011 Allergy to milk products; Z79.82 Long term (current) use of aspirin; Z79.899 Other long term (current) drug therapy
CPT/HCPCS: 36415; 80048; 85025; 85027; 85610; 85730; 94640; A4306; C1713; C1776; J0132; J0690; J1100; J1885; J2250; J2370; J2405; J2550; J2704; J2795; J3010; J3370; J7620; U0002; U0005

== ENCOUNTER 2021-12-12 15:14 | Outpatient (CLI) | payer MEDICARE | END 2021-12-12 15:15 | disposition home or self-care (01) | LOC: SCSRAD 15:14 | PROVIDERS: ATTEND Family Medicine | DX: M54.50 Low back pain, unspecified (principal); M54.6 Pain in thoracic spine; M54.2 Cervicalgia; M53.3 Sacrococcygeal disorders, not elsewhere classified; M47.816 Spondylosis without myelopathy or radiculopathy, lumbar region; M47.812 Spondylosis without myelopathy or radiculopathy, cervical region | CPT/HCPCS: 72040; 72072; 72100; 72220 ==

== ENCOUNTER 2022-01-18 13:25 | Outpatient (CLI) | payer MEDICARE | END 2022-01-18 13:26 | disposition home or self-care (01) | LOC: BICMAMMO 13:25 | PROVIDERS: ATTEND Family Medicine | DX: Z12.31 Encounter for screening mammogram for malignant neoplasm of breast (principal); Z98.890 Other specified postprocedural states | CPT/HCPCS: 77063; 77067 ==

== ENCOUNTER 2022-05-14 15:10 | Outpatient (CLI) | payer MEDICARE ==
[2022-05-14 16:10] LABS: #Monocytes 0.4 10x3/uL (0.0-1.1); #Neutrophils 2.3 10x3/uL (1.5-8.4); %Basophils 0.2 % (0.0-2.0); %Eosinophils 0.5 % (0.0-6.0); %Lymphocytes 36.8 % (18.0-47.0); %Monocytes 8.9 % (0.0-10.0); %Neutrophils 53.4 % (40.0-75.0); Hemoglobin 13.2 g/dL (12.0-15.5); Mean Corpuscular HGB CONC 33.1 g/dL (32.0-36.0); Mean Corpuscular Hemoglobin 28.4 pg (27.0-33.0); Mean Corpuscular Volume 85.8 fl (81.6-98.3); Mean Platelet Volume 10.2 fl (7.4-10.4); Platelet Count 212 10x3/uL (150-450); RBC Distribution Width 15.6 % (11.5-14.5); Red Blood Cell (RBC) Count 4.65 10x6/uL (3.90-5.03); White Blood Cell (WBC) Count 4.3 10x3/uL (3.5-10.5)
[2022-05-14 16:38] LABS: Anion Gap 14 mmol/L (10-20); BUN (Urea Nitrogen) 13 mg/dL (9.8-20.1); Calc. Creatinine Clearance 0 mL/min (70-130); Carbon Dioxide 25 mmol/L (23-31); Chloride 107 mmol/L (98-107); Estimated GFR 83; Glucose 107 mg/dL (80-115); Potassium 4.1 mmol/L (3.5-5.1); Sodium 142 mmol/L (136-145)
== END 2022-05-14 15:11 | disposition home or self-care (01) ==
LOC: LABBT 15:10
PROVIDERS: ATTEND Orthopaedic Surgery
DX: U07.1 COVID-19 (principal); Z01.812 Encounter for preprocedural laboratory examination; S46.011A Strain of muscle(s) and tendon(s) of the rotator cuff of right shoulder, initial encounter
CPT/HCPCS: 80048; 85025; 87811

== ENCOUNTER 2022-07-04 05:53 | Inpatient (IN) | payer MEDICARE ==
[2022-07-03 10:22] VITALS: BMI 35.9
[2022-07-04] MEDS ORDERED: Fentanyl 100 MCG/2 ML VIAL ONE ×3 (06:45→09:24)
[2022-07-04] MEDS ORDERED: Midazolam HCl 2 mg/2 ml Vial ONE ×2 (06:45)
[2022-07-04] MEDS ORDERED: Sodium Chloride 0.9% 100 ML ONE (06:48)
[2022-07-04] MEDS ORDERED: CEFAZOLIN 2 GM VIAL ONE (06:48)
[2022-07-04] MEDS ORDERED: fentaNYL Citrate/PF 100 MCG/2 ML SYRINGE ONE (07:02)
[2022-07-04] MEDS ORDERED: Rocuronium Bromide 50 MG/5 ML VIAL ONE (07:02)
[2022-07-04] MEDS ORDERED: PROPOFOL 20 ML ONE (07:02)
[2022-07-04] MEDS ORDERED: Vecuronium 10 MG VIAL ONE (07:10)
[2022-07-04] MEDS ORDERED: Rocuronium Bromide 10 MG/ML (10ML VIAL) ONE (07:10)
[2022-07-04] MEDS ORDERED: Neostigmine Methylsulfate 3 MG/3 ML SYRINGE ONE (07:10)
[2022-07-04] MEDS ORDERED: Dexamethasone 20 MG/5 ML VIAL ONE (07:10)
[2022-07-04] MEDS ORDERED: PROPOFOL 200 MG/20 ML VIAL ONE (07:10)
[2022-07-04] MEDS ORDERED: Lidocaine 1% MPF 2 ML VIAL ONE (07:10)
[2022-07-04] MEDS ORDERED: Glycopyrrolate 0.2 MG/ML 5 ML SYRINGE ONE (07:10)
[2022-07-04] MEDS ORDERED: Ropivacaine 0.5% HCl/PF (150 MG/30 ML VIAL) ONE (07:30)
[2022-07-04] MEDS ORDERED: Vancomycin (BATCH) 1.5 GRAM/300 ML BAG ONE (07:38)
[2022-07-04] MEDS ORDERED: HYDROcodone/Acetaminophen 10/325 mg Tablet PO PRN ×2 (08:00)
[2022-07-04] MEDS ORDERED: Ropivacaine 0.2% 550 ML 550 ML NERVE BLCK SCH (08:00)
[2022-07-04] MEDS ORDERED: Ondansetron PF 4 MG/2 ML Vial IVP PRN (08:00)
[2022-07-04] MEDS ORDERED: traMADol HCl 50 MG TAB PO PRN ×2 (08:00)
[2022-07-04] MEDS ORDERED: Promethazine HCl 25 MG/ML VIAL IM PRN (08:00)
[2022-07-04] MEDS ORDERED: Zolpidem Tartrate 5 MG TAB PO PRN (08:00)
[2022-07-04] MEDS ORDERED: SUGAMMADEX SODIUM 200 MG/2 ML VIAL ONE (08:49)
[2022-07-04] MEDS ORDERED: Tranexamic Acid 1,000 MG/10 ML VIAL ONE (09:24)
[2022-07-04] MEDS ORDERED: Promethazine HCl 25 MG/ML VIAL ONE (10:00)
[2022-07-04] MEDS ORDERED: Promethazine HCl 25 MG/ML VIAL IM/IV PRN (10:15)
[2022-07-04] MEDS ORDERED: Ondansetron HCl/PF 4 MG/2 ML Vial IVP PRN (10:15)
[2022-07-04] MEDS ORDERED: Methocarbamol 500 MG TAB PO PRN (10:46)
[2022-07-04] MEDS ORDERED: Bisacodyl 10 MG SUPP PR PRN (10:46)
[2022-07-04] MEDS ORDERED: diphenhydrAMINE 50 MG CAP PO PRN (10:46)
[2022-07-04] MEDS ORDERED: Milk Of Magnesia 30 ML UDCUP PO PRN (10:46)
[2022-07-04] MEDS ORDERED: Methocarbamol 1 GM/10 ML VIAL SLOW IVP PRN (10:46)
[2022-07-04] MEDS: Ketorolac Tromethamine 30 MG/ML VIAL IVP SCH ×3 (12:02→23:32)
[2022-07-04] MEDS: Sodium Chloride 0.9% 1,000 ML IV SCH (12:03)
[2022-07-04] MEDS: CEFAZOLIN 2 GM in Sodium Chloride 0.9% 100 ML IVPB SCH ×2 (14:53→23:32)
[2022-07-04] MEDS ORDERED: Vancomycin HCl 1.5 GM in Sodium Chloride 0.9% 250 ML 300 ML IVPB SCH (19:00)
[2022-07-04] MEDS: Famotidine 20 MG TAB PO SCH (20:33)
[2022-07-05] MEDS: Sodium Chloride 0.9% 1,000 ML IV SCH ×2 (03:06→18:12)
[2022-07-05 05:57] LABS: #Lymphocytes 1.5 thou/uL (1.20-3.40); #Monocytes 0.9 thou/uL (0.11-0.59); #Neutrophils 9.5 thou/uL (1.40-6.50); %Basophils 0.1 % (0.0-1.0); %Eosinophils 0.1 % (0.0-10.0); %Lymphocytes 12.9 % (21.0-51.0); %Monocytes 7.3 % (0.0-10.0); %Neutrophils 79.5 % (42.0-75.0); Hemoglobin 11.8 g/dL (12.0-16.0); Mean Corpuscular HGB CONC 32.3 g/dL (32.0-36.0); Mean Corpuscular Hemoglobin 29.4 pg (27.0-31.0); Mean Corpuscular Volume 90.9 fL (78.0-98.0); Mean Platelet Volume 7.5 fL (7.4-10.4); Platelet Count 254 thou/uL (130-400); RBC Distribution Width 13.5 % (11.5-14.5); White Blood Cell (WBC) Count 11.9 thou/uL (4.8-10.8)
[2022-07-05] MEDS: Ketorolac Tromethamine 30 MG/ML VIAL IVP SCH ×3 (06:15→18:12)
[2022-07-05] MEDS: Famotidine 20 MG TAB PO SCH ×2 (09:11→20:20)
[2022-07-05] MEDS: Fentanyl 100 MCG/2 ML VIAL SLOW IVP PRN ×3 (09:12→20:19)
[2022-07-06] MEDS: Ketorolac Tromethamine 30 MG/ML VIAL IVP SCH ×2 (01:06→05:15)
[2022-07-06] MEDS: Fentanyl 100 MCG/2 ML VIAL SLOW IVP PRN ×3 (01:47→08:24)
[2022-07-06 08:53] VITALS: TEMP 98.3
[2022-07-06] MEDS: Acetaminophen 325 MG TAB PO PRN ×2 (10:51→14:37)
[2022-07-06 12:09] VITALS: BP 139/84
== END 2022-07-06 14:51 | disposition home or self-care (01) | DRG 483 ==
LOC: SDC 05:53 → SURG A 09:42 → OBSVTOIN 07-05 16:59
PROVIDERS: ADMIT Orthopaedic Surgery; ATTEND Orthopaedic Surgery
PROC: 0RRJ00Z Replacement of Right Shoulder Joint with Reverse Ball and Socket Synthetic Substitute, Open Approach (ICD-10-PCS; principal; 2022-07-04)
PROC: 0LS30ZZ Reposition Right Upper Arm Tendon, Open Approach (ICD-10-PCS; 2022-07-04)
DX: M75.101 Unspecified rotator cuff tear or rupture of right shoulder, not specified as traumatic (principal); Z20.822 Contact with and (suspected) exposure to COVID-19; E03.9 Hypothyroidism, unspecified; I83.90 Asymptomatic varicose veins of unspecified lower extremity; M06.9 Rheumatoid arthritis, unspecified; Z90.49 Acquired absence of other specified parts of digestive tract; Z88.0 Allergy status to penicillin; I25.2 Old myocardial infarction; Z90.711 Acquired absence of uterus with remaining cervical stump; Z79.890 Hormone replacement therapy; Z79.52 Long term (current) use of systemic steroids; Z79.899 Other long term (current) drug therapy; Z91.011 Allergy to milk products
CPT/HCPCS: 36415; 85025; 96374; 96375; 96376; A4306; C1713; C1776; G0378; J0690; J1100; J1885; J2250; J2550; J2704; J2795; J3010; J3370; J3490; J7050

== ENCOUNTER 2022-10-03 19:30 | Outpatient (CLI) | payer MEDICARE | END 2022-10-03 19:31 | disposition home or self-care (01) | LOC: SLEEPLAB 19:30 | PROVIDERS: ATTEND Internal Medicine Cardiovascular Disease | DX: G47.33 Obstructive sleep apnea (adult) (pediatric) (principal); R53.83 Other fatigue; R06.83 Snoring; G47.00 Insomnia, unspecified; R35.1 Nocturia | CPT/HCPCS: 95811 ==

== ENCOUNTER 2022-12-29 12:54 | Emergency (ER) | payer OTHER, MEDICARE ==
[2022-12-29] MEDS ORDERED: Acetaminophen 500 MG TAB ONE (15:43)
[2022-12-29] MEDS ORDERED: Boostrix 0.5 ML (Tdap) VIAL (>/=7 yrs of age) ONE (15:43)
== END 2022-12-29 15:55 | disposition home or self-care (01) ==
LOC: ERS 12:54
DX: S01.01XA Laceration without foreign body of scalp, initial encounter (principal); E03.9 Hypothyroidism, unspecified; W10.9XXA Fall (on) (from) unspecified stairs and steps, initial encounter; Z23 Encounter for immunization
CPT/HCPCS: 12001; 70450; 72125; 90471; 90715